=== PATIENT | female | born 1950 | race Caucasian/White ===

== ENCOUNTER 2019-07-10 09:00 | Inpatient (IN) ==
[2019-07-06 14:03] LABS: Appearance,Urine CLEAR; Bilirubin,Urine NEG (NEG); Color,Urine STRAW; Culture Indicated,Urine NO; Glucose,Urine (UA) NEGATIVE (NEG); Ketones,Urine NEG (NEG); Leukocyte Esterase,Urine NEG /uL (NEG); Nitrate,Urine NEG (NEG); Protein,Urine NEG (NEG); Specific Gravity,Urine 1.009 (1.000-1.035); Urine Blood NEG mg/dL (<0.03); Urobilinogen,Urine NEG (NEG)
[2019-07-06 14:36] LABS: Blood Urea Nitrogen 16 mg/dl (8-23); Calcium 10.2 mg/dl (8.6-10.4); Carbon Dioxide 26 mmol/L (22-30); Chloride 99 mmol/L (96-108); Glomerular Filtration Rate 76; Glucose 91 mg/dL (70-105)
[2019-07-06 14:44] LABS: INR 0.9 (0.9-1.1); Prothrombin Time 12.5 sec (11.9-14.5)
[2019-07-06 14:51] LABS: Basophils # (Auto) 0.1 K/mcL (0.0-0.3); Basophils % (Auto) 1.1 % (0.0-2.0); Eosinophils # (Auto) 0.2 K/mcL (0.0-0.7); Eosinophils % (Auto) 2.7 % (0.0-7.0); Granulocytes % (Auto) 56.1 % (38.0-78.0); Hemoglobin 14.5 g/dL (12.0-15.0); Lymphocytes # (Auto) 2.5 K/mcL (1.5-4.8); Lymphocytes % (Auto) 31.6 % (15.5-49.0); Mean Cell Volume 88.7 fL (80.0-100.0); Mean Corpuscular HGB Conc 32.9 g/dL (31.0-36.0); Mean Platelet Volume 7.5 fL (7.4-10.4); Monocytes # (Auto) 0.7 K/mcL (0.1-0.9); Monocytes % (Auto) 8.5 % (1.0-12.0); Platelet Count 299 K/mcL (140-440); RBC 4.96 M/mcL (4.00-5.20); Red Cell Distribution Width 12.6 % (11.5-14.5); WBC 7.9 K/mcL (4.5-11.0)
[2019-07-06 14:57] LABS: Estimated Average Glucose(eAG) 114 mg/dL; Hemoglobin A1C 5.6 % HGB (4.0-6.0)
[~2019-07-10 09:00] MED LIST: IPRATROPIUM/ALBUTEROL 3 ML AMPUL.NEB NEB PRN; PREGABALIN 75 MG CAPSULE PO SCH; SCOPOLAMINE 1 PATCH PATCH TOPICAL PRN; ceFAZolin 2 GM in DEXTROSE 5% IN WATER 50 ML IV SCH; oxyCODONE 10 MG TAB.ER.12H PO SCH
[2019-07-10] MEDS ORDERED: fentaNYL 100 MCG/2 ML VIAL IV ONE (14:15)
[2019-07-10] MEDS ORDERED: DEXAMETHASONE 10 MG/ML VIAL IV ONE (14:15)
[2019-07-10] MEDS ORDERED: PHENYLEPHRINE 10 MG/ML VIAL IV ONE (14:15)
[2019-07-10] MEDS ORDERED: KETAMINE 100 MG/ML ML IV ONE (14:15)
[2019-07-10] MEDS ORDERED: GLYCOPYRROLATE 0.2 MG/ML VIAL IV ONE (14:15)
[2019-07-10] MEDS ORDERED: LIDOCAINE HCL/PF 100 MG/5 ML SYRINGE IV ONE (14:15)
[2019-07-10] MEDS ORDERED: PROPOFOL 200 MG/20 ML VIAL IV ONE (14:15)
[2019-07-10] MEDS ORDERED: ONDANSETRON 4 MG/2 ML VIAL IV ONE (14:15)
[2019-07-10] MEDS ORDERED: TRANEXAMIC ACID 1,000 MG/10 ML VIAL IV ONE ×2 (14:15→15:52)
[2019-07-10] MEDS ORDERED: ESMOLOL 100 MG/10 ML VIAL IV ONE (14:15)
[2019-07-10] MEDS ORDERED: ROCURONIUM 10 MG/ML ML IV ONE (14:15)
[2019-07-10] MEDS ORDERED: MIDAZOLAM 2 MG/2 ML VIAL IV ONE (14:15)
[2019-07-10] MEDS ORDERED: BUPIVACAINE W/EPI 0.5% 50 ML VIAL IJ ONE (15:30)
--- NOTE | 2019-07-10 15:51 | Brief Operative Note ---
Date of procedure: 07/10/19 Pre-op diagnosis: Right failed rotator cuff repair with arthrosis Post-op diagnosis: same Procedure: 1)Right reverse total shoulder arthroplasty Grafts/Implants: Yes (Daniel aguirre perform 4 stem, 0 eccentric tray, 6 insert, 36 off gleno) Anesthesia: GETA Findings: failed cuff repair, humeral head cartilage loss, severe osteoporosis Complications: none Surgeon: Andrew Mckinley Cotton Stripper: Norbert Kincaid Estimated blood loss (cc): 250 Specimens Removed/Pathology: none sent Condition: stable Disposition: PACU
[2019-07-10] MEDS ORDERED: BISACODYL 10 MG SUPP.RECT PR PRN (15:52)
[2019-07-10] MEDS ORDERED: FLEETS ADULT ENEMA PR PRN (15:52)
[2019-07-10] MEDS ORDERED: MAGNESIUM HYDROXIDE 30 ML ORAL.SUSP PO PRN (15:52)
[2019-07-10] MEDS ORDERED: POLYETHYLENE GLYCOL 3350 17 GM PACKET PO PRN (15:52)
[2019-07-10] MEDS ORDERED: ONDANSETRON 4 MG/2 ML VIAL IV PRN ×2 (15:52→16:18)
[2019-07-10] MEDS ORDERED: BENZOCAINE/MENTHOL 1 LOZENGE PO PRN (15:52)
[2019-07-10] MEDS ORDERED: KETOROLAC 15 MG/ML VIAL IV PRN (16:18)
[2019-07-10] MEDS ORDERED: ACETAMINOPHEN 1,000 MG/100 ML BOTTLE IV ONE (16:18)
[2019-07-10] MEDS ORDERED: IPRATROPIUM/ALBUTEROL 3 ML AMPUL.NEB NEB PRN (16:18)
[2019-07-10] MEDS ORDERED: METHOCARBAMOL 1,000 MG/10 ML VIAL IV PRN (16:18)
[2019-07-10] MEDS ORDERED: MEPERIDINE 25 MG/ML SYRINGE IV PRN (16:18)
[2019-07-10] MEDS ORDERED: HYDROmorphone 2 MG/ML VIAL IV PRN ×2 (16:20→16:53)
[2019-07-10] MEDS: fentaNYL 100 MCG/2 ML VIAL IV PRN ×4 (16:22→16:40)
[2019-07-10] MEDS ORDERED: LACTATED RINGERS 1,000 ML IV SCH (16:30)
--- NOTE | 2019-07-10 17:21 | XRay Report ---
CLINICAL INFORMATION: Postsurgical follow-up TECHNIQUE: AP, Y, axillary views of the right shoulder COMPARISON: None. FINDINGS: Status post right reverse shoulder arthroplasty. Prosthetic component are in anatomic positions. Skin butch are demonstrated overlying the right shoulder. IMPRESSION: Status post right reverse shoulder arthroplasty Interpreted and Authenticated by: Mahesh Goldsmith 07/10/19
[2019-07-10] MEDS: 0.9 % SODIUM CHLORIDE 1,000 ML IV SCH (17:45)
[2019-07-10] MEDS: HYDROmorphone 2 MG/ML VIAL IV PRN ×2 (19:45→23:36)
[2019-07-10] MEDS: KETOROLAC TROMETHAMINE 3 ML DROPS OP SCH (20:46)
[2019-07-10] MEDS: DOCUSATE SODIUM 100 MG CAPSULE PO SCH (20:46)
[2019-07-10] MEDS: ceFAZolin 1 GM VIAL IV SCH (20:47)
[2019-07-10] MEDS: 0.9 % SODIUM CHLORIDE 10 ML SYRINGE IV SCH (20:51)
[2019-07-10] MEDS ORDERED: SENNOSIDES 1 TABLET PO SCH (21:00)
[2019-07-11] MEDS: oxyCODONE/APAP 5/325MG TABLET PO PRN ×3 (04:22→12:40)
[2019-07-11] MEDS: 0.9 % SODIUM CHLORIDE 1,000 ML IV SCH ×2 (05:05→12:04)
[2019-07-11] MEDS: 0.9 % SODIUM CHLORIDE 10 ML SYRINGE IV SCH (05:38)
[2019-07-11] MEDS: ceFAZolin 1 GM VIAL IV SCH (05:38)
[2019-07-11] MEDS: HYDROmorphone 2 MG/ML VIAL IV PRN ×3 (06:25→11:04)
[2019-07-11] MEDS: KETOROLAC 15 MG/ML VIAL IV PRN ×2 (07:18→13:07)
--- NOTE | 2019-07-11 08:21 | Orthopedic Progress Note ---
Subjective Patient information: Note initiated : 07/11/19 at 8:20 am Service Date, if different from initiated Date: [] Patient: Dayan Burnett 69 y/o F admitted on 07/10/19 for Right Reverse Total Shoulder Arthroplasty. Chief Complaint: [Pt is stable this morning on post operative day 1 without any significant concerns or complaints. Patients vital signs have remained stable. Patients dressing is dry and is grossly intact from a neurovas cular and motor standpoint. Patients 10 point ROS is otherwise negative. ] Objective Vital signs: Vital Signs Temp Pulse Resp BP BP Pulse Ox 07/11/19 07:22 97.7 F 73 14 92/57 95 07/11/19 04:00 98 F 72 18 139/68 91 07/10/19 23:49 97.7 F 75 20 118/59 97 07/10/19 20:55 139/68 92 07/10/19 19:55 125/61 93 07/10/19 19:25 154/76 97 07/10/19 18:55 143/72 95 07/10/19 18:40 141/70 94 07/10/19 18:25 143/67 94 07/10/19 18:10 69 143/68 96 07/10/19 17:40 96 H 131/67 92 07/10/19 17:28 98.0 F 88 17 158/79 95 07/10/19 17:13 98.1 F 90 16 159/76 99 07/10/19 16:58 98.4 F 91 H 17 160/97 100 07/10/19 16:43 98.4 F 92 H 18 156/61 100 07/10/19 16:28 92 H 19 144/73 100 07/10/19 16:23 94 H 21 136/77 100 07/10/19 16:18 98 H 23 H 163/73 100 07/10/19 16:13 97.9 F 94 H 12 157/74 97 07/10/19 11:09 97.5 F 20 133/76 93 07/10/19 09:34 97.1 F 67 18 161/83 99 Intake and Output 07/10/19 07/11/19 07/11/19 21:59 05:59 13:59 Intake Total 1950 1500 200 Output Total 301 250 800 Balance 1649 1250 -600 Intake: IV 1950 1000 Sodium Chloride 0.9% 1,000 ml @ 1000 100 mls/hr IV .Q10H KENNEDY Rx#: [id number] Lactated Ringers 1,000 ml @ 20 1800 mls/hr IV .Q24H KENNEDY Rx#: [id number] Ancef 2 gm In Dextrose 5% in 50 Water 50 ml @ 100 mls/hr IV PREOP KENNEDY Rx#:[id number] Oral 500 200 Output: Void Amount 250 800 # of times incontinent of urine 1 Estimated Blood Loss 300 Other: Urine Appearance Clear Clear Urine Color Dark Yellow Dark Yellow Urine Odor Strong # Voids 1 Weight 259 lb 8 oz Intake & Output: Intake & Output 07/10/19 07/11/19 07/11/19 21:59 05:59 13:59 Intake Total 1950 1500 200 Output Total 301 250 800 Balance 1649 1250 -600 Weight 259 lb 8 oz Intake: IV 1950 1000 Sodium Chloride 0.9% 1,000 ml @ 1000 100 mls/hr IV .Q10H KENNEDY Rx#: [id number] Lactated Ringers 1,000 ml @ 20 1800 mls/hr IV .Q24H KENENDY Rx#: [id number] Ancef 2 gm In Dextrose 5% in 50 Water 50 ml @ 100 mls/hr IV PREOP KENNEDY Rx#:[id number] Oral 500 200 Output: Void Amount 250 800 # of times incontinent of urine 1 Estimated Blood Loss 300 Other: Urine Appearance Clear Clear Urine Color Dark Yellow Dark Yellow Urine Odor Strong # Voids 1 Incision: Yes healing Incision clean and dry: Yes Dressing: Yes clean Weight bearing status: full Neurological exam IM: Yes motor sensory intact, Yes neurovascular intact Extremities exam IM: Yes neurovascular intact - Labs CBC & BMP: 07/06/19 12:12 07/06/19 12:12 Labs: Orthopedic Labs 07/06/19 12:11 PT 12.5 INR 0.9 07/06/19 12:12 Hgb 14.5 Hct 44.0 Assessment and Plan (1) History of reverse total replacement of right shoulder joint The patient has been educated regarding dressing care, Physical Therapy recommendations, home exercises, restrictions, and follow up appointments. The patient has had all necessary DME prescribed. The patient has remained relatively stable during their hospital course. Status: Acute
--- NOTE | 2019-07-11 08:23 | Discharge Summary ---
Ortho Discharge - TSA - Patient Instructions Diet: Regular Diet Activity: activity as tolerated, weight bearing as tolerated Total Shoulder Protocol: Leave immobilizer in place except for bathing and ROM. Abduction pillow. Continue to wear sling until seen by physician. Codman Pendulum : These exercises use momentum produced by your body to move your shoulder joint. Bend your knees and shift your weight to your front leg, then back, allowing your arm to swing in the same directions. Using the same technique, alternately shift your weight between your right and left legs, allowing your arm to swing from side to side. These exercises are also performed in counterclockwise and clockwise circular motions. Typically these exercises are performed several times per day, for a set number repetitions or minutes, such as 20 times in a row or 5 minutes at a time. Dressing Care: May shower in 2 days, Aquacel Ag - leave on for 5 days - Problem Maintenance (1) History of reverse total replacement of right shoulder joint Status: Acute - Follow Up Plan Follow Up Appointments: Norbert Kincaid PA-C [Physician Medical Certification Specialist] - 07/23/19 1:00 pm Disposition: Home, Self-Care Prognosis: Good Rehab Potential: Good I certify that the patient requires SNF services: No Overall status at discharge: patient is progressing back to baseline - Orders For Discharge Prescriptions: Docusate Sodium [Colace] 100 mg PO BID #60 cap Transmission Status: Pending to [facility] oxyCODONE/APAP [Percocet 5-325 mg] 1 - 2 tab PO Q4HP PRN #75 tab PRN Reason: Per Pain Protocol Prescription Printed
[2019-07-11] MEDS ORDERED: LISINOPRIL 20 MG TABLET PO SCH (09:00)
[2019-07-11] MEDS ORDERED: ESTRADIOL 1 MG TABLET PO SCH (09:00)
[2019-07-11] MEDS ORDERED: LISINOPRIL/HCTZ 20/12.5MG TABLET PO SCH (09:00)
[2019-07-11] MEDS ORDERED: VITAMIN D3 1,000 UNIT TABLET PO SCH (09:00)
[2019-07-11] MEDS ORDERED: HYDROCHLOROTHIAZIDE 12.5 MG CAPSULE PO SCH (09:00)
[2019-07-11] MEDS ORDERED: LACTOBACILLUS 1 CAPSULE PO SCH (09:00)
[2019-07-11] MEDS ORDERED: DULoxetine 30 MG CAPSULE PO SCH (09:00)
[2019-07-11] MEDS: DOCUSATE SODIUM 100 MG CAPSULE PO SCH (10:12)
[2019-07-11] MEDS: KETOROLAC TROMETHAMINE 3 ML DROPS OP SCH (10:17)
[2019-07-13] MEDS ORDERED: LIOTHYRONINE 5 MCG TABLET PO SCH (07:30)
--- NOTE | 2019-07-13 08:27 | Operative Note ---
DATE OF OPERATION: 07/10/2019 PREOPERATIVE DIAGNOSIS: Right shoulder failed rotator cuff repair. POSTOPERATIVE DIAGNOSIS: Right shoulder failed rotator cuff repair, large area of humeral head cartilage loss. PROCEDURE PERFORMED: Right reverse total shoulder arthroplasty placing a Tornier Perform size 4 long humeral stem, high eccentricity 0 thickness tray, 6 mm polyethylene insert on a 25 mm lateralized baseplate with a 36 2 mm offset glenosphere. SURGEON: Andrew Mckinley MD PIPING ENGINEER: Mike Kincaid PA-C. This provider's expertise and technical skill were required throughout the case. The PA assisted with preoperative coordination, intraoperative retraction, wound closure, dressing and splint application, as well as postoperative documentation and care coordination. ANESTHESIA: General. DRAINS: None. SPECIMENS: Humeral head which was discarded. BLOOD LOSS: 250 mL COMPLICATIONS: Some cracking of the proximal humerus with trial broaching. POSTOPERATIVE CONDITION: Stable. INDICATIONS FOR SURGERY: This is a 69-year-old female who over 6 months ago underwent a rotator cuff repair. She did not progress well postoperatively and I believe she had had a history of a prior rotator cuff repair done many years before. She did not do well, so repeat MRI showed a failed cuff repair. FINDINGS AT SURGERY: She had failed rotator cuff with an almost full humeral head cartilage loss. Post implantation showed acceptable stability and range of motion. PROCEDURE IN DETAIL: The patient had been seen preoperatively and informed consent had been obtained after discussion of risks and benefits of surgery. Risks including, but not limited to, bleeding; infection, possibly requiring implant removal, prolonged IV antibiotics; injury to nerves, blood vessels, and other surrounding structures; anesthetic risks, dislocation; fracture; possibility of needing further revision surgery. She understood these risks and wished to proceed. Correct operative site was marked and the patient was taken to the operating room. General anesthesia induced. She was carefully positioned in the beach chair position and pressure points carefully padded. Ioban was used to cover all skin surfaces. A standard deltopectoral incision was made with a scalpel through skin and subcutaneous tissue. Careful blunt dissection was taken down onto the deltopectoral interval. The cephalic vein was identified and dissected lateral with the deltoid. We irrigated with IrriSept and then blunt finger dissection used to develop a subdeltoid space and a Morin deltoid retractor was placed. A lateral edge of the conjoint tendon was identified and blue handle retractor placed underneath. There was a visible failed cuff repair. We opened along the bicipital groove and then used a curved osteotome to perform a lesser tuberosity osteotomy as her subscap was still intact. I then noted at that point she had fairly severe osteoporosis. We dislocated the humeral head out anteriorly and cut guide was pinned into place. We then made our humeral head cut. We then used the hand awl to identify the canal trajectory and then the sounders were taken up to 5.6. I then started broaching and immediately with the first broach as I impacted gently down, the whole anterior chunk of bone, where the lesser tuberosity osteotomy was, fractured. I went ahead and rongeured a little bit more lateral as the stem was not large enough to get distal fixation and we went to a size 4 before distal fixation was obtained. We then placed a cut protector on the stem trial and then went to expose the glenoid. Once the glenoid was exposed, we excised the labrum circumferentially and released capsule around the inferior neck carefully keeping the Bovie directly on bone. Once I had adequate exposure, the guide was used to identify our starting point with a cephalic tilt. A guide pin was placed. We then used the reamer, and I reamed until I had contacted bone superiorly and we were in the cancellous bone inferiorly. We then drilled over the guidewire for the central peg and then we removed the guidewire and depth gauged our central hole and then chose a 25 lateralized baseplate with a 6.5 screw of the appropriate length. We irrigated the glenoid with IrriSept, after a minute irrigated with pulse lavage and then baseplate was advanced with the screw until it was down on bone. We got extremely good purchase with this screw. We then drilled and placed our superior and inferior locking screws and placed our nonlocking anterior and posterior. We chose a 2 mm inferior offset glenosphere. This was positioned with offset inferiorly and pushed onto the baseplate and then the screw was advanced tightening it down. We then re-exposed our proximal humerus, removed the cut protector and placed a high eccentricity a baseplate trial down and then a 6 insert trial. We then went to reduce the shoulder. It was going to be very snug, so I just started to let it slide over the glenosphere and then redislocated. We went ahead and removed the trial implants. Definitive implants were opened and assembled on the back table. I irrigated with IrriSept. I then placed a circumferential FiberWire stitch around the proximal humerus to help keep the anterior bone from displacing too far forward. We then after a minute pulse lavaged with saline. The stem was then impacted down. It did seat a millimeter or 2 above our trial. It did feel very stable. I then went back in and reduced the humeral component onto the glenosphere. It was very snug with good stability. I took the arm through range of motion and it was good, so we went ahead and irrigated with IrriSept again, after a minute pulse lavaged with saline. I then used #2 FiberWire to start lateral to the bicipital groove and then out through the osteotomized bone around the osteotomized fragment and repeated this with a second pass creating a [id number] stitch over top of the tuberosity. This was tied and cut. I repeated one a little more superiorly as well and then the traction stitch was used with a free needle through the bone laterally to reinforce the repair. We then did another IrriSept irrigation, after a minute another pulse lavage, and then #1 Vicryl running stitch was used for the deltopectoral interval closure. Final IrriSept irrigation was done, after a minute final pulse lavage, and then 2-0 Monocryl for subcutaneous and butch for skin. Xeroform and sterile dressing were applied. Arm was placed in an abductor immobilizer. The patient was awakened, extubated, and transferred to recovery in stable condition. WAYLON:[email or web address] Job ID: [id number] Doc ID: [id number] Andrew Mckinley MD
== END 2019-07-11 14:45 | disposition home or self-care (01) | DRG 483 ==
LOC: MEDSUR 09:34
PROVIDERS: ADMIT Orthopaedic Surgery; ATTEND Orthopaedic Surgery